=== PATIENT | female | born 1985 | race Caucasian/White ===

== ENCOUNTER 2017-09-07 18:10 | Emergency (ER) | payer SELFPAY ==
[~2017-09-07] VITALS: Ht 165.1 cm; Wt 62.0 kg
[~2017-09-07 18:10] MED LIST: BACT800T5 PO; CLIN150 PO; GABA300C3 PO; PARO25CR PO; TRAZ100 PO
[2017-09-07 18:24] VITALS: BP 154/85; PULSE 96; RESP 14; TEMP 98.5; O2SAT 100
[2017-09-07] MEDS ORDERED: BUSP10TA PO ×3 (18:34→19:51)
[2017-09-07] MEDS ORDERED: PROZ40CA PO ×3 (18:34→19:51)
[2017-09-07] MEDS ORDERED: TRAZ1TAB14 PO ×3 (18:34→19:51)
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
[2017-09-07 19:30] LABS: BILIRUBIN, URINE NEG (NEG); BLOOD, URINE NEG (NEG); GLUCOSE,URINE NEG (NEG); KETONE, URINE TRACE mg/dL (NEG); NITRITE,URINE NEG (NEG); URINE COLOR YELLOW (YELLW/STRAW); URINE LEUKOCYTE ESTERASE NEG (NEG)
== END 2017-09-07 19:56 | disposition home or self-care (01) ==
LOC: PHEFT 18:10
DX: Z76.0 Encounter for issue of repeat prescription (principal); N89.8 Other specified noninflammatory disorders of vagina; F41.9 Anxiety disorder, unspecified; F32.9 Major depressive disorder, single episode, unspecified
CPT/HCPCS: 81001; 84703; 99283